=== PATIENT | female | born 1950 | race Caucasian/White ===

== ENCOUNTER 2016-04-02 12:41 | Emergency (ER) | payer OTHER, MEDICARE ==
[2016-04-02] MEDS ORDERED: AMOXICILLIN/CLAVULANATE POT 875/125 MG TAB PO ONE (13:33)
[2016-04-02 13:34] VITALS: BP 150/75; PULSE 76; RESP 16; TEMP 98.2; O2SAT 98
--- NOTE | 2016-04-02 13:41 | UCPHY ---
H & P Time Seen by Provider: 04/02/16 13:07 Patient Type: Established HPI/ROS: HPI Wound check. 66-year-old female by private vehicle. No significant past medical history. She reports that on March 23 she was at the [place] airport and had a wheelchair pushed into her right lower leg. She sustained a laceration to this area. It was repaired in [place]. She was put on Keflex immediately after wound care and was on it for 5 days. She has been off Keflex for 5 days. She presents to the emergency department stating that she has had some redness around the wound edges developing yesterday but worse this morning. She is a retired nurse. No history of diabetes. ROS: Constitutional: No fever, no chills. No weakness. Skin: As above. Neurological: No focal weakness or altered sensation. Past medical history: As above, otherwise no pertinent past medical history. Social history: Here by herself. Physical Exam: General Appearance: Alert, no distress. This patient is responding to questions appropriately and in full sentences. This patient appears well- hydrated and well-nourished. Eyes: Pupils equal and round no pallor or injection. No lid edema, erythema or injection. Right leg exam: Significant for a serpentine, laceration, lower right lateral leg, well sutured. No dehiscence or drainage. No fluctuance, pus or evidence of abscess. Surrounding erythema. No warmth associated with this erythema. Right lower extremity is neurovascularly intact. Neurological: Motor sensory function is grossly intact. Cranial nerves are normal. Gait is normal. Skin: Warm and dry, as above. Extremities are symmetrical, bilateral lower extremities. All joints range without pain or impingement. Psychiatric: No agitation. No depression. Database: EKG: Imaging: Procedures: Emergency department course: Vital signs reviewed, the patient is afebrile. Sutures have been in place for 10 days. Given the location of the wound I feel it is still premature to take these out. Plan will be to leave the sutures in. Place her on Augmentin at 875 mg twice daily for 7 days. She is scheduled to have the sutures removed on Friday. I have demarcated the erythema with a tissue marker pen. If the erythema spreads she is to return to Urgent Care for re-evaluation and sutures will be removed at that time and Steri-Strips will be placed. She feels comfortable with this plan. All of her questions were answered. She was discharged in good condition. Differential Diagnosis: The differential diagnosis on this patient includes but is not limited to wound infection, cellulitis. Retained foreign body, DVT unlikely This represents a partial list of diagnoses considered. These considerations are based on history , physical exam, past history and reassessment. Smoking Status: Never smoked Constitutional: Initial Vital Signs Temperature (C) 36.8 C 04/02/16 13:05 Heart Rate 76 04/02/16 13:05 Respiratory Rate 16 04/02/16 13:05 Blood Pressure 150/75 H 04/02/16 13:05 O2 Sat (%) 98 04/02/16 13:05 O2 Delivery Mode Room Air Allergies/Adverse Reactions: No Known Allergies Allergy (Unverified 04/02/16 13:14) Home Medications: Medication Instructions Recorded Amoxicillin/Clavulanate Pot 875 mg PO BID 7 Days 04/02/16 [Augmentin 875 mg tab] Losartan Potassium 04/02/16 MDM/Departure - Depart Disposition: Home, Routine, Self-Care Clinical Impression: Wound infection Condition: Good Instructions: Wound Infection (ED) Additional Instructions: Read and follow provided instructions. Take antibiotics as prescribed through entire course of treatment. Continue probiotics. Return to the Urgent Care in 2 days for recheck as discussed. If erythema still present sutures should be removed at that time and Steri-Strips placed over wound. Otherwise sutures should remain in place until Friday. Return to the urgent care or emergency department immediately for worsening or spreading erythema, pain, fever, purulent drainage or other serious concerns. Prescriptions: Amoxicillin/Clavulanate Pot [Augmentin 875 mg tab] 875 mg PO BID 7 Days Referrals: OUT OF STATE,. [Primary Care Provider] - As per Instructions - PQRS PQRS Measurement: 134: Depression screening and followup, PRIME MD-PHQ2 (12 years and older) Over the last 2 weeks, how often have you been bothered by any of the following problems? 1. Feeling down, depressed, or hopeless? 2. Little interest or pleasure in doing things? Answered no to both questions. 130: Documentation of medications. Reviewed all patient medications, doses, route and frequency. 226: Do you smoke? No. 47: 65 and older: Advanced care planning. Patient designates surrogate decision maker as daughter. 51: 18 years old and older with diagnosis of COPD, spirometry performance. NA 52: 18 years old and older with COPD and symptoms of COPD or FEV1<60% predicted prescribed a B Agonist. NA
== END 2016-04-02 14:04 | disposition home or self-care (01) ==
LOC: CED 12:41
DX: S81.811D Laceration without foreign body, right lower leg, subsequent encounter (principal)
CPT/HCPCS: 99214-PO; G0463-PO

== ENCOUNTER → 2016-04-04 | Emergency (ER) | payer OTHER, MEDICARE ==
[2016-04-04 08:49] VITALS: BP 128/72; PULSE 66; RESP 18; TEMP 98.5; O2SAT 97
--- NOTE | 2016-04-04 09:19 | UCPHY ---
H & P Time Seen by Provider: 04/04/16 09:00 Patient Type: Established HPI/ROS: The patient was evaluated [address] Taylor here at [facility] noted to have a wound infection complicating a laceration sutured in [place] on March 25 when she [place] wheelchair [place] airport. She has been on Keflex for the 1st 5 days has prophylaxis but developed evidence of wound infection with surrounding erythema and she was started on Augmentin 2 days ago and reports compliance. Patient notes a mild minus serous drainage from the apex of the wound which is lunar in shape. She however does report significant reduction in erythema. Dr. Chavez also suggested she return today to decide whether to keep stitches in a bit longer or removed them. Today is 12 days post suture placement. ROS: No fevers or other constitutional complaints. 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 General: No acute distress Cardiac: Brisk capillary refill is intact throughout. Skin: The patient has an approximately 7 cm semi lunar shaped sutured laceration to the right lateral leg. The erythema has receded to an area smaller than the previously demarcated border. The wound itself appears slow to heal appear somewhat dry. There is still scab inter seeding between the skin margins and there is a small gap of on bridged tissue in some areas of the wound. There is minimal serous drainage from the apex but no fluctuance noted. Neuro: Alert with no sensorimotor deficit at the wound site. Constitutional: Initial Vital Signs Temperature (C) 36.9 C 04/04/16 08:46 Heart Rate 66 04/04/16 08:46 Respiratory Rate 18 04/04/16 08:46 Blood Pressure 128/72 H 04/04/16 08:46 O2 Sat (%) 97 04/04/16 08:46 O2 Delivery Mode Room Air Allergies/Adverse Reactions: No Known Allergies Allergy (Unverified 04/04/16 08:46) Home Medications: Medication Instructions Recorded Amoxicillin/Clavulanate Pot 875 mg PO BID 7 Days 04/02/16 [Augmentin 875 mg tab] Losartan Potassium 04/02/16 MDM/Departure - MDM ED Course/Re-evaluation: I removed 2 sutures from apex of the wound and cleaned it gently with warm water. There is no significant drainage. Trace serous discharge. Steri-Strips placed at the apex but encouraged the patient to continue with the sutures for another 2 days at least and return Friday for another check. The wound appears slow to heal and appears somewhat dry. However, the infection appears to be improving significantly on the Augmentin. We encouraged her to use moist heat few times a day over the next 2 days A dressing is placed prior to discharge - Depart Disposition: Home, Routine, Self-Care Clinical Impression: Visit for wound care Instructions: Acute Wound Care (ED) Additional Instructions: Diagnosis: Wound check Plan: Apply warm packs few times a day-moist warm packs Gently massage the area Continue Augmentin antibiotic. Return for wound evaluation in 2 days. Referrals: OUT OF STATE,. [Primary Care Provider] - As per Instructions - PQRS PQRS Measurement: 134: Depression screening and followup, PRIME MD-PHQ2 (12 years and older) Over the last 2 weeks, how often have you been bothered by any of the following problems? 1. Feeling down, depressed, or hopeless? 2. Little interest or pleasure in doing things? Patient answered no to both 1 and 2 130: Documentation of medications. Reviewed all patient medications, doses, route and frequency. 226: Do you smoke? [No.] 47: 65 and older: Advanced care planning. Patient designates surrogate decision maker as daughter 51: 18 years old and older with diagnosis of COPD, spirometry performance. NA 52: 18 years old and older with COPD and symptoms of COPD or FEV1<60% predicted prescribed a B Agonist. ORTEGA
== END | disposition home or self-care (01) ==
LOC: CED 08:26
DX: Z48.00 Encounter for change or removal of nonsurgical wound dressing (principal); S81.811D Laceration without foreign body, right lower leg, subsequent encounter
CPT/HCPCS: G0463-PO

== ENCOUNTER 2016-04-06 08:46 | Emergency (ER) | payer OTHER, MEDICARE ==
[2016-04-06 08:59] VITALS: BP 113/72; PULSE 66; RESP 16; TEMP 97.9; O2SAT 99
--- NOTE | 2016-04-06 09:24 | UCPHY ---
[id number] CHIEF COMPLAINT: Wound evaluation HISTORY OF PRESENT ILLNESS: This is a 66-year-old female who sustained a right anterior tibial laceration on March 25 while traveling. The wound was sutured at that time. She did Keflex for 5 days following laceration repair. She subsequently developed increasing redness and warmth surrounding the wound, was seen at [facility] on then and started on Augmentin. She has been compliant with that medication. She was seen again on the 04 of April at Urgent Care. During that visit improvement in the wound infection was noted. A few of the stitches were removed and Steri-Strips were placed. She returns today for re-evaluation. She has not had new warmth or erythema. She has not noted drainage from the wound. She does not have fever. She feels that the wound is improving. REVIEW OF SYSTEMS: No fever, malaise, new weakness, or new numbness. Past Medical/Surgical History: Raynaud's Family history is negative, noncontributory. Social History: She is visiting her daughter in [place]. No tobacco use. She is a retired ICU nurse. Smoking Status: Never smoked Physical Exam: General Appearance: Alert. Vital signs reviewed. Focused physical examination was performed. Respiratory: Lungs are clear to auscultation; no wheezes, rales, or rhonchi. Cardiovascular: Regular rate and rhythm; no murmur, rub, or gallop. Skin: As per extremity exam. Skin is warm and dry. Mild warmth surrounding the sutured laceration on the right lower extremity. Extremities: Sutured laceration on right lateral tibial region. Sutures and Steri-Strips are in place. The wound has been outlined with a skin pen. There is no erythema stent extending beyond the demarcations. Wound edges are intact. There is some scabbing. No purulent drainage. No fluctuance. Neurological: Alert and oriented. Moving all four extremities easily and equally. Sensation intact over right lower extremity. Psychiatric: Normal affect. Constitutional: Initial Vital Signs Temperature (C) 36.6 C 04/06/16 08:56 Heart Rate 66 04/06/16 08:56 Respiratory Rate 16 04/06/16 08:56 Blood Pressure 113/72 04/06/16 08:56 O2 Sat (%) 99 04/06/16 08:56 O2 Delivery Mode Room Air Allergies/Adverse Reactions: No Known Allergies Allergy (Unverified 04/06/16 08:59) Home Medications: Medication Instructions Recorded Amoxicillin/Clavulanate Pot 875 mg PO BID 7 Days 04/02/16 [Augmentin 875 mg tab] Losartan Potassium 04/02/16 Medical Decision Making ED Course/Re-evaluation: Wound evaluation. I removed every other stitch. This wound does appear to be healing slowly but I think that she is making progress, based upon my review of her previous records. I have recommended that she return in 2 days for removal of the remainder of the stitches. She will continue to watch closely for any signs of worsening infection and she will complete the Augmentin. I do not think that she has worsening infection. Differential Diagnosis: Differential diagnosis includes but is not limited to cellulitis, abscess, poor wound healing secondary to circulatory problems. Departure - Departure Disposition: Home, Routine, Self-Care Clinical Impression: Visit for wound care Condition: Good Instructions: Stitches Removal (ED) Additional Instructions: Continue the Augmentin until gone. Wound care as we discussed--it is okay to shower. As you know, the Steri- Strips might fall off. Keep the wound clean and dry. Watch for drainage, new redness, and new warmth. Return on Friday (or Friday) to have the rest of the sutures removed. Referrals: OUT OF STATE,. [Primary Care Provider] - As per Instructions - PQRS PQRS Measurement: 134: Depression screening and followup, PRIME MD-PHQ2 (12 years and older) Over the last 2 weeks, how often have you been bothered by any of the following problems? 1. Feeling down, depressed, or hopeless? 2. Little interest or pleasure in doing things? Patient answered no to both 1 and 2 130: Documentation of medications. Reviewed all patient medications, doses, route and frequency. 226: Do you smoke? No. 47: 65 and older: Advanced care planning. Patient has advanced directive. 51: 18 years old and older with diagnosis of COPD, spirometry performance. Patient has no history of COPD 52: 18 years old and older with COPD and symptoms of COPD or FEV1<60% predicted prescribed a B Agonist. Not applicable.
== END 2016-04-06 09:46 | disposition home or self-care (01) ==
LOC: CED 08:46
DX: S81.811D Laceration without foreign body, right lower leg, subsequent encounter (principal); I73.00 Raynaud's syndrome without gangrene
CPT/HCPCS: G0463-PO

== ENCOUNTER 2016-04-08 13:21 | Emergency (ER) | payer OTHER, MEDICARE ==
[2016-04-08 13:52] VITALS: BP 93/69; PULSE 73; RESP 18; TEMP 98.1; O2SAT 97
--- NOTE | 2016-04-08 13:53 | UCPHY ---
H & P Time Seen by Provider: 04/08/16 13:50 Patient Type: Established HPI/ROS: CHIEF COMPLAINT: Suture removal and wound evaluation HISTORY OF PRESENT ILLNESS: This is a 66-year-old female who is been followed in Urgent Care for wound infection following right lower extremity laceration repair at an outside facility. She is here today for wound evaluation and possible suture removal. She feels that she is improving. She has not been febrile or otherwise ill. She is pursuing her usual activities without difficulty. REVIEW OF SYSTEMS: A ten point review of systems was performed and is negative with the exception of the items mentioned in the HPI. Social History: [place] out of state. Smoking Status: Never smoked Physical Exam: A focused physical examination was performed. The sutured laceration on her right lower extremity of appears clean and dry. There is scabbing along the suture line. No drainage or purulence. I saw her 2 days ago for this and the overall appearance is improved. There continues to be some surrounding erythema, without warmth. This area appears smaller than it did 2 days ago. She has full flexion and extension of her knee and ankle. Constitutional: Initial Vital Signs Temperature (C) 36.7 C 04/08/16 13:49 Heart Rate 73 04/08/16 13:49 Respiratory Rate 18 04/08/16 13:49 Blood Pressure 93/69 L 04/08/16 13:49 O2 Sat (%) 97 04/08/16 13:49 O2 Delivery Mode Room Air Allergies/Adverse Reactions: No Known Allergies Allergy (Unverified 04/06/16 08:59) Home Medications: Medication Instructions Recorded Amoxicillin/Clavulanate Pot 875 mg PO BID 7 Days 04/02/16 [Augmentin 875 mg tab] Losartan Potassium 04/02/16 Medical Decision Making ED Course/Re-evaluation: Sutures were removed by urgent care staff. Departure - Departure Disposition: Home, Routine, Self-Care Clinical Impression: Visit for suture removal Condition: Good Instructions: Stitches Removal (ED) Referrals: OUT OF STATE,. [Primary Care Provider] - As per Instructions - PQRS PQRS Measurement: PQRS questions were asked during her previous visits and do not apply to today' s visit.
== END 2016-04-08 14:18 | disposition home or self-care (01) ==
LOC: CED 13:21
DX: Z48.02 Encounter for removal of sutures (principal)
CPT/HCPCS: 99212-PO